=== PATIENT | male | born 1990 | race Caucasian/White ===

== ENCOUNTER 2016-07-23 21:11 | Emergency (ER) | payer BC ==
[~2016-07-23] VITALS: Ht 190.5 cm; Wt 86.2 kg
--- NOTE | 2016-07-23 21:22 | NUR ---
26 YO MALE BB RA FROM HOME. PT IS ALERT X 3, STATES HE HAD 2 CONSECUTIVE SYNCOPE EPISODE WHILE EATING DINNER IN SEATED POSITION. EMS WAS CALLED, EMS ADMIN 250ML NS ART DEPARTMENT HEAD VIA 18G LEFT AC. PER EMS PT COLOR HAS RETURNED AND LOOKS BETTER. PT ASSISTED TO ER BED, SKN WARM AND DRY, RR EVEN AND UNLABORED. AWAITING ORDERS FROM PROVIDER
[2016-07-23] MEDS ORDERED: IV SET PRIMARY 1 EA INFUS.SET MC ONE (21:23)
[2016-07-23] MEDS ORDERED: IV NS 0.9% 1,000 ML ONE (21:23)
--- NOTE | 2016-07-23 21:23 | NUR ---
MD PETIT AT BED SIDE FOR EVAL
[2016-07-23] MEDS ORDERED: IV NS 0.9% 1,000 ML BAG IV ONE (21:30)
--- NOTE | 2016-07-23 21:30 | NUR ---
MEDICATED PT ORDERED
[2016-07-23 21:35] LABS: BASOPHILS % (AUTO) 0.4 % (0.0-2.0); EOSINOPHILS # (AUTO) 0.2 /CMM (0.0-0.7); EOSINOPHILS % (AUTO) 3.6 % (0.0-6.0); HEMATOCRIT 46 % (39-51); HEMOGLOBIN 15.8 g/dL (13.5-17.5); LYMPHOCYTES # (AUTO) 1.7 /CMM (0.8-4.8); LYMPHOCYTES % (AUTO) 30.3 % (20.0-44.0); MEAN CORPUSCULAR HEMOGLOBIN 28 PG (26.0-33.0); MEAN CORPUSCULAR HGB CONC 35 g/dl (31.0-36.0); MEAN CORPUSCULAR VOLUME 82 fL (80-96); MONOCYTES # (AUTO) 0.2 /CMM (0.1-1.30); MONOCYTES % (AUTO) 4.2 % (2.0-12.0); NEUTROPHILS # (AUTO) 3.4 /CMM (1.8-8.9); NEUTROPHILS % (AUTO) 61.5 % (43.0-81.0); PLATELET COUNT (AUTO) 183 /CMM (150-450); RDW COEFFICIENT OF VARIATION 11.2 (11.5-15.0); WHITE BLOOD COUNT (AUTO) 5.5 K/uL (4.3-11.0)
[2016-07-23 21:42] LABS: CALCIUM, SERUM 8.7 mg/dL (8.5-10.1); CREATININE 1.1 mg/dL (0.6-1.3); POTASSIUM 3.5 mmol/L (3.5-5.1)
[2016-07-23 21:57] LABS: BILIRUBIN,DIRECT 0.2 mg/dL (0.0-0.2); BILIRUBIN,TOTAL 0.5 mg/dL (0.2-1.0)
[2016-07-23 22:19] VITALS: BP 128/60
--- NOTE | 2016-07-23 22:19 | NUR ---
Patient discharged to home in stable condition. Written and verbal after care instructions given. Patient verbalizes understanding of instruction.IV removed. Catheter intact and site benign. Pressure and 4x4 applied to site. No bleeding noted. PT ambulatory with a steady gait VITAL SIGNS WITHIN NORMAL LIMITS.
== END 2016-07-23 22:30 | disposition home or self-care (01) ==
LOC: ER 21:14
DX: R55 Syncope and collapse (principal); I44.0 Atrioventricular block, first degree; F12.90 Cannabis use, unspecified, uncomplicated; F17.210 Nicotine dependence, cigarettes, uncomplicated
CPT/HCPCS: 36415; 80048-TC; 80076-TC; 85025-TC; A4606; J7030; Z7610